=== PATIENT | female | born 2000 | race Caucasian/White ===

== ENCOUNTER 2021-01-31 22:27 | Emergency (ER) | payer MEDICAID, SELFPAY ==
[2021-01-31 22:29] VITALS: BP 118/59; PULSE 96; RESP 18; TEMP 35.9; O2SAT 98; BMI 23.2
--- NOTE | 2021-01-31 22:53 | CT_ITS ---
STUDY: CT BRAIN WITHOUT CONTRAST REASON FOR EXAM: Female, 20 years old. Altered mental status RADIATION DOSAGE (If Supplied By Facility): CTDIvol = ( 44.99 ) mGy, DLP = ( 762.36 ) mGycm TECHNIQUE: Transaxial CT imaging of the brain was performed without administration of intravenous contrast material. Individualized dose optimization techniques were used for this CT. COMPARISON: No relevant priors. FINDINGS: Normal soft tissue structures. Normal calvarium. Normal size ventricles and extra-axial spaces for the patient''s age. Normal white matter tracts of the cerebral hemispheres. Normal basal ganglia and thalami. Normal brainstem. Normal cerebellum. There is no intracranial hemorrhage. There are no findings of an acute ischemic infarction. Normal visualized paranasal sinuses. CT/Brain/Head without Contrast IMPRESSION: Normal unenhanced CT scan of the brain. Electronically Signed: Nia Correia MD at 0:11 EDT Tel , Service support ,
--- NOTE | 2021-01-31 22:54 | ED.VISSUMM ---
- ER Visit Summary Date of Service: 01/31/21 Chief Complaint: Elevated blood sugar History of Present Illness: The patient is a 20 F brought in by Employee Benefits Administrator due to elevated blood sugar. Patient is unable to provide much history. She falls asleep frequently during exam. She admits to heroin use earlier today. She denies other drug use. She states her blood sugar was elevated and that is why they brought her to the emergency department. She otherwise has no complaints. Physical Examination: Vitals are stable. Patient is afebrile. Alert no acute distress. HEENT exam is unremarkable. Neck is supple. Nontender, no meningismus Lungs are clear and equal bilaterally. Heart is regular rate and rhythm. Abdomen is soft nontender nondistended. No guarding or rebound Extremities are unremarkable. Skin is warm and dry. No focal neurologic deficit. Answers questions appropriately. Opens eyes to voice. Remainder of exam is unremarkable. Emergency Department Course and Treatment: CBC normal except hemoglobin 8.8. Chemistries normal except for sodium 132, glucose 489, creatinine 1.32. hCG negative. Alcohol negative. CT head normal unenhanced CT scan of the brain. Urine tox shows amphetamine, methamphetamine, benzodiazepine, cocaine. Patient is given IV fluids, subcutaneous insulin. Repeat BGT 422, patient was given additional IV fluids and subcutaneous insulin. Repeat BGT 214. Patient was observed in the ED. Repeat BGT 63. Patient is tolerating food in the emergency department. Repeat BG T 129. She is now awake and alert and answering questions appropriately. She will be discharged. Advised to follow-up with primary care physician. Advised to return to the ED for worsening complaints. Disposition: Discharge home Impression: Polysubstance abuse, hyperglycemia This note was generated with [employer] dictation software. It may contain incorrect words, spelling, and punctuation that were not noted in review of the chart prior to signing ED Disposition - Plan for ED Patient: Instructions: ED Diabetic Hyperglycemia Referrals: NOT,DEFINED [NON-STAFF] -
[2021-01-31] MEDS: 0.9% Normal Saline 1,000 ML 1000 ML IV (23:31)
[2021-01-31 23:36] LABS: Absolute Lymphocyte Count 1.81 X10^3/uL (0.83-4.51); Absolute Neutrophil Count 2.3 X10^3/uL (2.0-7.7); Basophil# 0.02 X10^3/uL; Basophil% 0.4 % (0-1); Eosinophil# 0.04 X10^3/uL; Eosinophils% 0.8 % (0-5); Hematocrit 28.5 % (37-47); Hemoglobin 8.8 g/dL (12.0-15.0); Lymphocyte # 1.81 X10^3/ul (4.0); Lymphocyte % 37.6 % (19-41); Mean Corp Hgb Conc 30.9 g/dL (32-36); Mean Corpuscular Hgb 26.3 pg (27.0-32.0); Mean Corpuscular Volume 85.3 fL (81-99); Mean Platelet Vol. 9.8 fl (6.2-12.0); Monocyte# 0.61 X10^3/uL; Monocyte% 12.7 % (0-10); NRBC Flagged by Analyzer 0 % (0-5); Neutrophil # 2.32 X10^3/uL (2.7-7.7); Neutrophil % 48.1 % (47-70); Platelet Count 290 K/mm3 (150-450); RBC Distribution Width CV 14.7 % (11.6-14.6); Red Blood Count 3.34 M/mm3 (4.2-5.4); White Blood Count 4.8 K/mm3 (4.4-11.0)
[2021-01-31 23:45] LABS: Internal QC Validated? YES +Cl - CLEAR BKGD; Pregnancy, Serum, hCG Quali. NEGATIVE Negative
[2021-01-31 23:59] LABS: Anion Gap 5 (5-15); BUN 13 mg/dL (7-18); BUN/Creat Ratio 9.8 RATIO (10-20); Calcium,Total 8.9 mg/dL (8.5-10.1); Chloride 98 mmol/L (98-107); Creatinine, Serum 1.32 mg/dL (0.55-1.02); EST Glomerular Filtration Rate 53 mL/min (>60); Est Glom Filt Rate - Afr Amer 64 mL/min (>60); Glucose 489 mg/dL (74-106); Potassium 4.2 mmol/L (3.5-5.1); Sodium Level 132 mmol/L (136-145)
[2021-02-01] MEDS: Insulin Lispro 100 UNIT/ML INSULN.PEN 10 UNIT SC ×2 (00:08→01:25)
[2021-02-01 00:38] LABS: Amphetamine Urine VISTA POSITIVE (<1000 ng/mL); Barbiturate Urine VISTA NEGATIVE (< 200 ng/mL); Benzodiazepine Urine VISTA POSITIVE (< 200 ng/mL); Cocaine Urine VISTA POSITIVE (< 300 ng/mL); Ecstacy Urine VISTA POSITIVE (< 500 ng/mL); Methadone Urine VISTA NEGATIVE (< 300 ng/mL); PCP Urine VISTA NEGATIVE (< 25 ng/mL); THC Urine VISTA NEGATIVE (< 50 ng/mL); Vista UDS pH Range 6
[2021-02-01 01:00] VITALS: BP 96/50; PULSE 90; RESP 16; O2SAT 96
[2021-02-01 01:06] LABS: Bedside Glucose 422 mg/dL (70-110)
[2021-02-01] MEDS: 0.9% Normal Saline 1,000 ML 999 ML IV (01:25)
[2021-02-01 03:01] LABS: Bedside Glucose 214 mg/dL (70-110)
[2021-02-01 03:05] VITALS: BP 102/47; PULSE 85; RESP 16; O2SAT 98
[2021-02-01 05:55] LABS: Bedside Glucose 63 mg/dL (70-110)
[2021-02-01 06:08] VITALS: BP 119/70; PULSE 85; RESP 16; O2SAT 97
--- NOTE | 2021-02-01 06:13 | ED.DEP ---
ED Disposition - Plan for ED Patient: Instructions: ED Diabetic Hyperglycemia Referrals: NOT,DEFINED [NON-STAFF] -
--- NOTE | 2021-02-01 06:16 | ED.RN ---
B. pt given orange juice, breakfast sandwich, and yogurt.
[2021-02-01 06:50] LABS: Bedside Glucose 129 mg/dL (70-110)
== END 2021-02-01 06:54 | disposition home or self-care (01) ==
LOC: ED 23:07
PROVIDERS: Emergency Provider Emergency Medicine
DX: R73.9 Hyperglycemia, unspecified (principal); F15.10 Other stimulant abuse, uncomplicated; F14.10 Cocaine abuse, uncomplicated; F11.10 Opioid abuse, uncomplicated; F13.10 Sedative, hypnotic or anxiolytic abuse, uncomplicated
CPT/HCPCS: 70450; 80048; 80307; 82077; 82962; 84703; 85025; 96360; 96361; 99285; J7030; A4216